=== PATIENT | male | born 1995 | race Hispanic/Latino ===

== ENCOUNTER 2018-10-18 10:31 | Outpatient (CLI) | payer OTHER ==
--- NOTE | 2018-10-18 11:29 | ULT ---
BILATERAL UPPER EXTREMITY VENOUS DOPPLER ULTRASOUND EVALUATION: HISTORY: Bilateral upper extremity pain. TECHNIQUE: Multiple longitudinal and transverse images of the right and left upper extremity venous systems are obtained using a Multi[employer] linear array transducer. Real-time, color-flow, and spectral wave-form Doppler analysis demonstrates no evidence of acute or old clot seen in the right or left in ternal jugular veins, subclavian veins, axillary veins, basilic veins, brachial veins, ulnar veins, radial veins, or cephalic veins. IMPRESSION: No evidence of right or left upper extremity venous occlusion or stenosis. Transcribed Date/Time: 10/18/2018 11:39 AM
== END 2018-10-18 10:32 | disposition home or self-care (01) ==
LOC: BICULT 10:31
PROVIDERS: ATTEND Family Medicine
DX: R00.2 Palpitations (principal); Z86.718 Personal history of other venous thrombosis and embolism